=== PATIENT | male | born 1960 | race Asian ===

== ENCOUNTER 2025-02-02 22:01 | Emergency (ER) | payer MEDICAID, OTHER ==
[~2025-02-02] VITALS: Ht 162.6 cm; Wt 52.3 kg
[~2025-02-02 22:01] MED LIST: GEMF600T PO; OLAN15TA2 PO; VENL-68 PO; ZIPR80CA2 PO
[2025-02-02 22:29] VITALS: BP 133/97; PULSE 112; RESP 18; TEMP 97.5; O2SAT 98
[2025-02-02 22:49] LABS: APPEARANCE,URINE CLEAR (CLEAR); GLUCOSE, URINE (UA) NEGATIVE (NEGATIVE); LEUKOCYTE ESTERASE ,URINE NEGATIVE (NEGATIVE); NITRATE,URINE NEGATIVE (NEGATIVE); OCCULT BLOOD,URINE NEGATIVE (NEGATIVE); PH,URINE DRUG SCREEN 6.5 (5.0-8.0); PLATELET COUNT (AUTO) 347 K/uL (150-450); RED BLOOD CELL COUNT(AUTO) 4.11 MIL/uL (4.50-5.90); RED CELL DISTRIBUTION WIDTH 13.6 % (11.5-14.5); SPECIFIC GRAVITIY, URINE 1.014 (1.003-1.030); WHITE BLOOD COUNT (AUTO) 4.8 K/uL (4.5-11.0)
[2025-02-02 22:57] LABS: ALCOHOL, URINE DRUG SCREEN NEGATIVE (NEGATIVE); AMPHET/METH SCREEN,URINE NEGATIVE (NEGATIVE); BARBITURATE SCREEN, URINE NEGATIVE (NEGATIVE); CANNABINOID SCREEN,URINE NEGATIVE (NEGATIVE); COCAINE SCREEN,URINE NEGATIVE (NEGATIVE); METHADONE SCREEN, URINE NEGATIVE (NEGATIVE)
[2025-02-02 22:58] LABS: CALCIUM, TOTAL 8.8 mg/dL (8.8-10.5); CREATININE 1.31 mg/dL (0.60-1.30); GLOMERULAR FILTR. RATE CALC 55.0 mL/min (>60); GLUCOSE,RANDOM 112.0 mg/dL (70-110); SODIUM SERUM 141.0 mmol/L (136-145); UREA NITROGEN, BLOOD 15.0 mg/dL (7-18)
[2025-02-02 23:23] LABS: COVID AG,FIA SOURCE NASAL SWAB
[2025-02-02 23:28] LABS: SARS-COV2 (COVID) ANTIGEN,FIA Negative (Negative)
== END 2025-02-03 02:56 | disposition home or self-care (01) ==
LOC: EMS 22:03
DX: F25.9 Schizoaffective disorder, unspecified (principal); F32.A Depression, unspecified; F41.9 Anxiety disorder, unspecified; I10 Essential (primary) hypertension; F17.210 Nicotine dependence, cigarettes, uncomplicated; F15.90 Other stimulant use, unspecified, uncomplicated; Z79.899 Other long term (current) drug therapy; Z20.822 Contact with and (suspected) exposure to COVID-19; Z88.5 Allergy status to narcotic agent
CPT/HCPCS: 99284; 87426; 80048; 81003; 85025; 36415; 80307; G0480